=== PATIENT | male | born 1980 | race Two or more races ===

== ENCOUNTER 2025-01-13 18:16 | Emergency (ER) | payer BC, SELFPAY ==
[2025-01-13 18:16] VITALS: BMI 27.2
[2025-01-13 18:26] VITALS: BP 126/85
[2025-01-13 21:42] LABS: Hematocrit 38.9 % (39.0-52.0); Hemoglobin 13.6 g/dL (13.0-18.0); Mean Corp Hgb Conc. 35.0 g/dL (33.0-37.0); Mean Corpuscular Volume 80.7 fL (80.0-94.0); Nucleated Red Blood Cells % 0 % (-); Platelet Count 219 10^3/uL (130-400); Red Cell Dist. Width 12.6 % (11.5-14.5)
[2025-01-13 21:53] LABS: Urine Character Clear (Clear)
[2025-01-13 22:04] LABS: ALT (SGPT) 19 U/L (0-50); AST (SGOT) 16 U/L (17-59); Albumin 4.8 g/dl (3.5-5.0); Alkaline Phosphatase 43 U/L (38-126); Blood Urea Nitrogen 18 mg/dl (9-20); Calcium 9.6 mg/dl (8.4-10.2); Carbon Dioxide 31 mmol/L (22-30); Chloride 102 mmol/L (98-107); Estimated Creatinine Clearance 122 ml/min; Glucose 103 mg/dl (70-99); Potassium 3.5 mmol/L (3.5-5.1); Sodium 139 mmol/L (135-145); Total Protein 7.3 g/dl (6.3-8.2); eGFR > 60.00
[2025-01-13 22:05] LABS: C-Reactive Protein < 5.00 mg/L (0.0-10.00)
[2025-01-13 22:07] LABS: Urine Red Blood Cell 0-2 /HPF (0-2); Urine Squamous Cell 0-2 /LPF (Few); Urine White Cell 0-2 /HPF (0-5)
[2025-01-13 22:45] VITALS: BP 116/75
[2025-01-13 23:00] VITALS: BP 113/75
--- NOTE | 2025-01-13 23:09 | ED.GENMED ---
History of Present Illness
General
Chief Complaint: Numbness
Time Seen by Provider: 01/13/25 20:53
Course
Orders/Labs/Results
Orders:
Orders
01/13/25 21:31
CRP [C-Reactive Protein] Urgent
Complete Blood Count/With Diff Urgent
Comprehensive Metabolic Panel Urgent
Lyme Progressive Urgent
Sed Rate [Erythrocyte Sed Rate] Urgent
01/13/25 21:46
Urinalysis Reflex To Culture Urgent
Date Specimen was Collected: 01/13/25
Time Specimen was Collected: 21:45
Urine Microscopic Reflex Cult Urgent
Abnormal Lab Results
01/13/25 01/13/25
21:31 21:46
Hct 38.9 L %
(39.0-52.0)
Absolute Monos (auto) 0.7 H 10^3/uL
(0.1-0.6)
Carbon Dioxide 31 H mmol/L
(22-30)
Glucose 103 H mg/dl
(70-99)
AST 16 L U/L
(17-59)
Urine Albumin (Reflex) 1+ A
(Neg - Trace)
01/13/25 21:31
01/13/25 21:31
Vital Signs
Initial and Last Documented VS:
Initial Vital Signs
Temp Pulse Resp BP Pulse Ox
97.7 F 61 18 126/85 98
01/13/25 18:26 01/13/25 18:26 01/13/25 18:26 01/13/25 18:26 01/13/25 18:26
Last Documented Vital Signs
Temp Pulse Resp BP Pulse Ox
97.7 F 70 18 126/85 98
01/13/25 18:26 01/13/25 21:45 01/13/25 21:45 01/13/25 18:26 01/13/25 18:26
*Pulse Oximetry
SaO2: 98
Oxygen Mode of Delivery: Room air
ED Attending Note
ED Attending Note
Patient seen and examined by attending physician: Yes
I performed the substantive portion of visit, reviewed & personally made and approve the management plan that is documented in note by myself or DANIEL.: Yes
ED Attending Note:
Seen with [employer] TECHNICIAN examined independently 44-year-old male subacute onset of neck and back pain numbness into his lower extremities, no fevers, put on some steroids much relief scheduled for an MRI of his spine next week and then follow-up appointment
with the physician at the [facility]' strong posterior tibialis pulses here, reflexes are intact, differential would include neuropathy, demyelinating disease other, do not believe he has epidural abscess discitis or Guillain-Sánchez�
-
Portions of this chart may have been created with voice recognition software.� Occasional wrong word or��sound alike� substitutions may have occurred due to the inherent limitations of voice recognition software.
Discharge Plan
Departure
Referrals:
Tomy Allison MD [Family Provider, Family Practice]
Interventions
Interventions:
*Risk Screen - Suicide Last Done: 01/13/25 18:26
*General Assessment Last Done: 01/13/25 18:26
*Neglect/Abuse Screening Last Done: 01/13/25 18:26
*ED COVID-19 Vaccine History Last Done: 01/13/25 18:26
*ED Influenza Vaccine History Last Done: 01/13/25 18:26
ED- Neurological Assessment Last Done: 01/13/25 21:01
Discharge Date and Time
Print Language: WELSH
[2025-01-13] MEDS: NEURONTIN 300 MG PO (23:22)
[2025-01-13 23:25] VITALS: BP 130/82
== END 2025-01-13 23:27 | disposition home or self-care (01) ==
LOC: EMR 18:16
PROVIDERS: Nurse Practitioner; EMERGENCY PHYSICIAN Emergency Medicine; FAMILY PHYSICIAN Family Medicine
DX: M54.10 Radiculopathy, site unspecified (principal)
CPT/HCPCS: 99283; 80053; 81003; 81015; 85025; 85652; 86140; 86618